=== PATIENT | male | born 1960 | race Caucasian/White ===

== ENCOUNTER 2019-02-16 08:54 | Inpatient (IN) | payer OTHER, BC ==
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
[2019-02-16 09:46] LABS: BASO % 1.2 % (0-2.0); HEMATOCRIT 43.5 % (35.4-49); HEMOGLOBIN 14.6 GM/dl (11.7-16.9); LYMPH % 26.7 % (8-40); MCH 33.2 pg (25.7-33.7); MCHC 33.7 g/dl (32.0-35.9); MEAN CELL VOLUME 98.4 fl (80-96); MEAN PLT VOLUME 9.6 fl (7.5-11.1); MONO % 7.1 % (3.8-10.2); PLATELET COUNT 180 K/MM3 (134-434); RBC 4.41 M/mm3 (4.00-5.60); RDW 13.1 % (11.9-15.9); WHITE BLOOD COUNT 8.3 K/mm3 (4.0-10.8)
[2019-02-16 09:48] LABS: INR 1.1 (0.82-1.09); PROTHROMBIN TIME (PATIENT) 12.3 SEC (10.2-13.0)
[2019-02-16 10:57] LABS: ALBUMIN 3.5 g/dl (3.4-5.0); BILIRUBIN,TOTAL 0.4 mg/dL (0.2-1); BLOOD UREA NITROGEN 13.3 mg/dL (7-18); CALCIUM 9.3 mg/dL (8.5-10.1); CREATININE 0.8 mg/dL (0.55-1.3); POTASSIUM 4.2 mmol/L (3.5-5.1); TOT PROT 6.9 g/dl (6.4-8.2)
[2019-02-16 11:47] VITALS: BMI 27.6
[2019-02-16] MEDS ORDERED: IBUPROFEN 600 MG TABLET (FP) PO PRN (13:02)
[2019-02-16] MEDS ORDERED: MIDAZOLAM HCL 2 MG/2 ML SINGLE DOSE VIAL ONE (14:13)
[2019-02-16] MEDS ORDERED: PROPOFOL 20 ML ONE ×2 (14:13→14:44)
[2019-02-16] MEDS ORDERED: SUCCINYLCHOLINE CHLORIDE 200 MG/10 ML SYRINGE ONE (14:13)
[2019-02-16] MEDS ORDERED: BUPIVACAINE HCL/PF 2.5 MG/ML - 30 ML VIAL IJ ONE (14:14)
[2019-02-16] MEDS ORDERED: DEXAMETHASONE SOD PHOSPHATE 4 MG/1 ML VIAL ONE (14:15)
[2019-02-16] MEDS ORDERED: LIDOCAINE HCL/PF 2% SDV 5ML VIAL ONE (14:15)
[2019-02-16] MEDS ORDERED: KETOROLAC TROMETHAMINE 30 MG/1 ML VIAL ONE (14:15)
[2019-02-16] MEDS ORDERED: ceFAZolin SODIUM 1 GM VIAL ONE (14:15)
[2019-02-16] MEDS ORDERED: ONDANSETRON 4 MG/2 ML VIAL ONE (14:15)
[2019-02-16] MEDS ORDERED: SODIUM CHLORIDE 0.9% P/F 10 ML VIAL IJ ONE (14:15)
--- NOTE | 2019-02-16 15:16 | PN ---
Progress Note (short form) - Note Progress Note: Ortho FULL CONSULT DICTATED BY DR STARKEY. A/P OR FOR RIGHT SHOULDER I&D
--- NOTE | 2019-02-16 15:20 | OP ---
Operative Note - Note: Operative Date: 02/16/19 (suhail) Pre-Operative Diagnosis: right shoulder infection Operation: right shoulder I&D, removal of hardware, arthrotomy, bursectomy Post-Operative Diagnosis: Same as Pre-op Surgeon: Aníbal Liu Anesthesiologist/DOOR LINER HELPER: Rosales Bhatti Anesthesia: General Specimens Removed: RC anchors, sutures, bursa Estimated Blood Loss (mls): 50
[2019-02-16] MEDS ORDERED: oxyCODONE HCL 5 MG TABLET PO PRN (15:50)
[2019-02-16] MEDS ORDERED: ONDANSETRON 4 MG/2 ML VIAL IVPUSH PRN (15:50)
[2019-02-16] MEDS ORDERED: PROMETHAZINE HCL 25 MG/1 ML VIAL IVPUSH PRN (15:50)
[2019-02-16] MEDS ORDERED: HYDROmorphone HCl 2 MG/ML VIAL IVPUSH PRN (15:50)
--- NOTE | 2019-02-16 17:24 | HP ---
Admitting History and Physical - Admission Chief Complaint: R shoulder pain History of Present Illness: Patient is a 58y/o male with past medical history of HTN, HLD, multiple orthopedic surgeries. Patient complain of R shoulder pain after injection to R shoulder by orthopedist 2 weeks ago. He says 2 days after receiving joint injection he noticed swelling to his R shoulder and pain. Yesterday he had swelling drained by orthopedist which showed possible infection. History Source: Patient Limitations to Obtaining History: No Limitations - Past Medical History Cardiovascular: Yes: HTN, Hyperlipdemia - Past Surgical History Additional Past Surgical History: cervical spinal fusion, cardiac catherterization - Smoking History Smoking history: Current every day smoker Have you smoked in the past 12 months: Yes Aproximately how many cigarettes per day: 40 - Alcohol/Substance Use Hx Alcohol Use: No - Social History Usual Living Arrangement: Yes: Alone ADL: Independent History of Recent Travel: No Home Medications - Allergies Allergies/Adverse Reactions: Allergies Allergy/AdvReac Type Severity Reaction Status Date / Time No Known Drug Allergies Allergy Unknown Verified 02/16/19 08:55 - Home Medications Home Medications: Ambulatory Orders Aspirin [ASA -] 81 mg PO DAILY 02/16/19 Diazepam 10 - 20 mg PO HS 02/16/19 Famotidine [Acid Controller] 20 mg PO BID 02/16/19 Metoprolol Succinate [Toprol Xl] 50 mg PO BID 02/16/19 Review of Systems - Review of Systems Constitutional: reports: No Symptoms Eyes: reports: No Symptoms HENT: reports: No Symptoms Neck: reports: No Symptoms Cardiovascular: reports: No Symptoms Respiratory: reports: No Symptoms Gastrointestinal: reports: No Symptoms Genitourinary: reports: No Symptoms Breasts: reports: No Symptoms Reported Musculoskeletal: reports: Joint Pain (R shoulder), Joint Swelling (R shoulder) Integumentary: reports: No Symptoms Neurological: reports: No Symptoms Endocrine: reports: No Symptoms Hematology/Lymphatic: reports: No Symptoms Psychiatric: reports: No Symptoms Physical Examination Vital Signs: Vital Signs Temperature 97.6 F 02/16/19 15:45 Pulse Rate 73 02/16/19 15:45 Respiratory Rate 16 02/16/19 15:45 Blood Pressure 154/87 02/16/19 15:45 O2 Sat by Pulse Oximetry (%) 97 02/16/19 15:45 Constitutional: Yes: No Distress, Calm Eyes: Yes: Conjunctiva Clear HENT: Yes: Atraumatic Neck: Yes: Supple Cardiovascular: Yes: Regular Rate and Rhythm Respiratory: Yes: Regular, CTA Bilaterally Gastrointestinal: Yes: Normal Bowel Sounds, Soft Musculoskeletal: Yes: WNL Extremities: Yes: WNL Edema: No Wound/Incision: Yes: Dressing Dry and Intact Neurological: Yes: Alert, Oriented Psychiatric: Yes: Alert, Oriented Labs: CBC, BMP 02/16/19 09:10 02/16/19 09:10 Imaging - Results Cat Scan: Report Reviewed Problem List - Problems (1) HTN (hypertension) Assessment/Plan: -Metoprolol -low Na diet Code(s): I10 - ESSENTIAL (PRIMARY) HYPERTENSION (2) Infective arthritis of right shoulder Assessment/Plan: -Orthopedics on board -POD #0 R SHoulder I&D, removal of hardware, bursectomy -pain control -incentive spirometer -PT -dvt ppx Code(s): M00.9 - PYOGENIC ARTHRITIS, UNSPECIFIED Assessment/Plan see problem list dvt ppx
[2019-02-16] MEDS: NICOTINE 7 MG/24 HOURS TOPICAL PATCH TD SCH (18:11)
--- NOTE | 2019-02-16 18:29 | CONS ---
DATE OF CONSULTATION: 02/16/2019 ORTHOPEDIC CONSULTATION Patient is a 58-year-old male well known to me being approximately multiple years since our right rotator cuff repair. Patient was seen in my office approximately 10 days ago complaining of pain in his shoulder. X-rays at that time had shown slightly high riding humeral head and the anchors from his previous surgery. At that time of the initial presumptive diagnosis of bursitis in his shoulder was made. Patient did worse over the ensuring period of time and presented with worsening pain. Patient presented to my office yesterday on February 15 with swelling of the anterior aspect of his shoulder. He did have good range of motion of his glenohumeral joint but had very exquisite tenderness anteriorly over the anterior deltoid with a slight fluctuance in that region. He had nontender clavicle, AC joint, acromion, and again a good range of motion of his shoulder with no erythema. A needle aspiration of the area revealed some cloudy fluid quite possibly purulence. This was sent for culture but with the potential of an infection. The patient was indicated for an emergent open exploration and debridement of his shoulder. He was sent to come to the emergency room the next morning to be admitted at [facility] which was performed today in the emergency room. Lab values, white count was within normal limits, and patient had no fever. CAT scan in the emergency room did show some fluid anterolateral to the shoulder. Patient was therefore indicated for an open exploration of the rotator cuff debridement and irrigation and culture. We will hold off on antibiotic administration until after we open the patient and are able to get good cultures intraoperatively. ADITI STARKEY M.D. [id number]
--- NOTE | 2019-02-16 19:44 | OP ---
DATE OF OPERATION: 02/16/2019 PREOPERATIVE DIAGNOSIS: Internal derangement right shoulder, possible infection. POSTOPERATIVE DIAGNOSIS: Internal derangement right shoulder, possible infection. PROCEDURE: Open exploration of the right shoulder with debridement of rotator cuff, removal of hardware, open bursectomy of the shoulder, and irrigation and debridement. SURGICAL ATTENDING: Aníbal Liu M.D. CAKE MIXER: Pedro Olivares ANESTHESIA: General with LMA. CLOSURE: 0 Vicryl , 2-0 nylon for skin. ESTIMATED BLOOD LOSS: Negligible. COMPLICATIONS: None. CONDITION: To recovery in stable condition. DESCRIPTION OF OPERATIVE PROCEDURE: Patient taken to operating room on February 16, 2019. General anesthesia LMA was administered by the anesthesiologist. No IV antibiotics were administered prophylactically prior to the case as we wanted to wait until after cultures were obtained. The right shoulder was prepped and draped in the usual sterile fashion after the patient was placed in the beach chair position. The shoulder was palpated to have some sort of fluctuance over its anterolateral aspect. A longitudinal incision over the anterolateral corner of the acromion in line with the deltoid fibers was incised. Hemostasis achieved with Bovie cautery. Sharp dissection was carried down to the level of the deltoid fascia. This was opened sharply then bluntly dissected through the deltoid and into the subdeltoid region. Some cloudy fluid was encountered from in the soft tissue, and some immediately upon going through the deltoid fascia. This area was cultured and fluid was sent to the lab for analysis. At this time, IV antibiotics, Kefzol was administered by the anesthesiologist. The subdeltoid and subacromial region was entered. There was a great deal of fibrinous material in this region. The fibrinous material that had covered over where the rotator cuff had been repaired, there was some free floating sutures from this speed bridge repair that had been done initially . These features were not attached to the rotator cuff any longer. They were pulled, and the anchors that they were attached were pulled out of the humeral head. Three anchors were easily removed. The fourth anchor was not found and was left in situ. The holes where the anchors came out were curetted. All bursal tissue in the subacromial space was debrided. The rotator cuff was found again to be deficient with a bald humeral head superiorly especially. Areas of the greater tuberosity were rongeured deep down to bleeding healthy bone. All suture material from the repair was debrided. Six liters of pulsed antibiotic irrigation were irrigated in the subacromial space subdeltoid region throughout the shoulder in the subcutaneous tissue. This was all drained, hemostasis was achieved. The deltoid was closed using a 0 Vicryl running suture. The skin was closed using 2-0 nylon horizontal mattress suture. Sterile pressure dressing was applied, and a sling was applied to the right upper extremity. Patient awakened from anesthesia and transferred to recovery room in stable condition. Will keep the patient on prophylactic antibiotics until we obtain the results of the culture and the fluid sent down to the lab, check it for cell count, crystals, culture and sensitivity, and pathology. Infectious disease consultation will be obtained as well to help direct us further in the treatment of this patient. ANÍBAL LIU M.D. ELAINE/[id number]
[2019-02-16] MEDS: oxyCODONE HCL 5 MG TABLET PO PRN (19:47)
[2019-02-16] MEDS ORDERED: HEPARIN NA (PORCINE) 5,000 UNITS/ML 1ML VIAL SQ SCH (22:00)
[2019-02-16] MEDS: diazePAM 5 MG TABLET PO SCH (22:01)
[2019-02-16] MEDS: FAMOTIDINE 20 MG TABLET PO SCH (22:02)
[2019-02-17 08:00] LABS: BASO % 0.3 % (0-2.0); EOS % 0.6 % (0-4.5); HEMATOCRIT 37.4 % (35.4-49); HEMOGLOBIN 12.9 GM/dl (11.7-16.9); MCH 33.9 pg (25.7-33.7); MCHC 34.6 g/dl (32.0-35.9); MEAN PLT VOLUME 10.1 fl (7.5-11.1); MONO % 4.6 % (3.8-10.2); NEUT % 80.5 % (42.8-82.8); PLATELET COUNT 147 K/MM3 (134-434); RBC 3.82 M/mm3 (4.00-5.60); RDW 13.2 % (11.9-15.9); WHITE BLOOD COUNT 12.4 K/mm3 (4.0-10.8)
[2019-02-17 08:05] LABS: ALBUMIN 3.1 g/dl (3.4-5.0); BILIRUBIN,TOTAL 0.2 mg/dl (0.2-1); CALCIUM 8.5 mg/dl (8.5-10); CREATININE 0.7 mg/dl (0.55-1.3); MAGNESIUM 1.9 mg/dL (1.8-2.4); PHOSPHOROUS 3.9 mg/dl (2.5-4.9); POTASSIUM 4.2 mmol/L (3.5-5.1)
--- NOTE | 2019-02-17 09:11 | PN ---
Progress Note (short form) - Note Progress Note: ANESTHESIA POSTOP 58 YO MALE POD#1 S/P RIGHT SHOULDER I&D, GA Patient resting in bed. No n/v VSS, Afebrile Continue current care. Encouraged IS and ambulation. No anesthetic complications.
--- NOTE | 2019-02-17 09:22 | EKG ---
Test Reason : Blood Pressure : / mmHG Vent. Rate : 073 BPM Atrial Rate : 073 BPM P-R Int : 122 ms QRS Dur : 138 ms QT Int : 420 ms P-R-T Axes : 069 081 010 degrees QTc Int : 462 ms NORMAL SINUS RHYTHM RIGHT BUNDLE BRANCH BLOCK ABNORMAL ECG WHEN COMPARED WITH ECG OF 10-AUG-2010 10:08, RIGHT BUNDLE BRANCH BLOCK IS NOW PRESENT Confirmed by ZULEYMA MEIER, FANNY ([id number]) on 02/17/2019 9:22:28 AM Referred By: MEAGAN VU Confirmed By:FANNY AMOR MD
--- NOTE | 2019-02-17 09:49 | PN ---
Progress Note (short form) - Note Progress Note: Ortho Pt seen and examined s/p right shoulder I&D pod #1 Laboratory Tests 02/16/19 02/16/19 02/17/19 15:14 15:14 07:06 WBC 12.4 H Hgb 12.9 Hct 37.4 Plt Count 147 Fluid Source Pending Fluid RBC Pending Fluid Neutrophils Pending Synovial Crystals Pending dressing c/d/i, good rom of elbow, wrist and hand nvi a/p ID consult f/u cultures and micro sling for comfort ok for shoulder ROM exercises pain control will follow
[2019-02-17] MEDS ORDERED: ceFAZolin 2 GRAM PREMIX BAG IVPB SCH (10:00)
[2019-02-17] MEDS: ASPIRIN 81 MG CHEWABLE TABLETS PO SCH (10:10)
[2019-02-17] MEDS: FAMOTIDINE 20 MG TABLET PO SCH ×2 (10:10→22:02)
[2019-02-17] MEDS: NICOTINE 7 MG/24 HOURS TOPICAL PATCH TD SCH (10:11)
--- NOTE | 2019-02-17 10:38 | PN ---
Progress Note (short form) - Note Progress Note: ID CONSULT DICTATED POD#1 I&D R SHOULDER AWAIT C/S EMPIRIC VANCOMYCIN/CEFEFIME HOLD OR CULTURES FOR P. ACNES
[2019-02-17] MEDS ORDERED: CEFEPIME HCL/D5W 2 GM/50 ML BAG IVPB SCH (10:45)
[2019-02-17] MEDS ORDERED: CEFEPIME HCL 2 GM VIAL (RESTRICTED TO ID) ONE ×2 (10:59→17:28)
[2019-02-17] MEDS ORDERED: DEXTROSE 5%-WATER 100 ML IVPB ONE ×2 (10:59→17:28)
[2019-02-17] MEDS ORDERED: FLU VACCINE QUAD 60 MCG/0.5 ML (MDV 19-20) IM ONE (11:00)
[2019-02-17] MEDS: VANCOMYCIN 1 GRAM (PRE-DOCKED) 1,000 MG/250 ML BAG IVPB SCH ×2 (11:03→22:13)
[2019-02-17] MEDS: CEFEPIME 2 GM in DEXTROSE 5%-WATER 100 ML IVPB SCH ×2 (11:03→17:30)
[2019-02-17] MEDS: oxyCODONE HCL 5 MG TABLET PO PRN ×2 (12:53→20:04)
--- NOTE | 2019-02-17 16:44 | PN ---
Progress Note, Physician Chief Complaint: R Shoulder pain History of Present Illness: Previous notes and events reviewed awake and alert NAD leukocytosis afebrile POD #1 R SHoulder I&D, removal of hardware, bursectomy - Current Medication List Current Medications: Active Medications Aspirin (Asa -) 81 mg PO DAILY [facility] Last Admin: 02/17/19 10:10 Dose: 81 mg Diazepam (Valium -) 5 mg PO HS [facility] Last Admin: 02/16/19 22:01 Dose: 5 mg Famotidine (Pepcid -) 20 mg PO BID [facility] Last Admin: 02/17/19 10:10 Dose: 20 mg Vancomycin HCl (Vancomycin (Pre-Docked)) 1,000 mg in 250 mls @ 166.667 mls/hr IVPB Q12H [facility]; Protocol Last Admin: 02/17/19 11:03 Dose: 166.667 mls/hr Cefepime HCl 2 gm/ Dextrose 100 mls @ 200 mls/hr IVPB Q8H-IV [facility] Last Admin: 02/17/19 11:03 Dose: 200 mls/hr Ibuprofen (Motrin -) 600 mg PO Q6H PRN PRN Reason: PAIN LEVEL 4 - 6 Metoprolol Succinate (Toprol Xl -) 50 mg PO BID [facility] Last Admin: 02/17/19 10:10 Dose: 50 mg Nicotine (Nicoderm Patch -) 7 mg TD DAILY [facility] Last Admin: 02/17/19 10:11 Dose: 7 mg Ondansetron HCl (Zofran Injection) 4 mg IVPUSH Q6H PRN PRN Reason: NAUSEA AND/OR VOMITING Last Admin: 02/16/19 16:15 Dose: 4 mg Oxycodone HCl (Roxicodone -) 5 mg PO Q4H PRN PRN Reason: PAIN LEVEL 1-5 Oxycodone HCl (Roxicodone -) 10 mg PO Q4H PRN PRN Reason: PAIN LEVEL 6-10 Last Admin: 02/17/19 12:53 Dose: 10 mg Oxycodone/Acetaminophen (Percocet 5/325 -) 1 combo PO Q6H [facility] Last Admin: 02/17/19 15:32 Dose: 1 combo - Objective Vital Signs: Vital Signs Temperature 97.8 F 02/17/19 14:21 Pulse Rate 75 02/17/19 14:21 Respiratory Rate 18 02/17/19 14:21 Blood Pressure 125/70 02/17/19 14:21 O2 Sat by Pulse Oximetry (%) 97 02/17/19 14:21 Constitutional: Yes: No Distress, Calm Eyes: Yes: Conjunctiva Clear HENT: Yes: Atraumatic Cardiovascular: Yes: Regular Rate and Rhythm Respiratory: Yes: Regular, CTA Bilaterally Gastrointestinal: Yes: Normal Bowel Sounds, Soft Musculoskeletal: Yes: WNL Extremities: Yes: WNL Edema: No Wound/Incision: Yes: Dressing Dry and Intact Neurological: Yes: Alert, Oriented Psychiatric: Yes: Alert, Oriented Labs: CBC, BMP 02/17/19 07:06 02/17/19 07:06 INR, PTT INR 1.10 (0.82-1.09) 02/16/19 09:10 Problem List - Problems (1) HTN (hypertension) Assessment/Plan: -Metoprolol -low Na diet Code(s): I10 - ESSENTIAL (PRIMARY) HYPERTENSION (2) Infective arthritis of right shoulder Assessment/Plan: -Orthopedics on board -POD #1 R SHoulder I&D, removal of hardware, bursectomy -pain control -incentive spirometer -PT -dvt ppx -Vancomycin, Cefepime -leukocytosis -afebrile Code(s): M00.9 - PYOGENIC ARTHRITIS, UNSPECIFIED
[2019-02-17] MEDS: diazePAM 5 MG TABLET PO SCH (22:03)
[2019-02-18] MEDS ORDERED: CEFEPIME HCL 2 GM VIAL (RESTRICTED TO ID) ONE ×3 (00:46→16:54)
[2019-02-18] MEDS ORDERED: DEXTROSE 5%-WATER 100 ML IVPB ONE ×3 (00:47→16:54)
[2019-02-18] MEDS: oxyCODONE HCL 5 MG TABLET PO PRN ×3 (00:51→11:30)
[2019-02-18] MEDS: CEFEPIME 2 GM in DEXTROSE 5%-WATER 100 ML IVPB SCH ×3 (01:05→17:38)
[2019-02-18 07:53] LABS: HEMATOCRIT 36.5 % (35.4-49); HEMOGLOBIN 12.3 GM/dl (11.7-16.9); MCH 33.1 pg (25.7-33.7); MCHC 33.8 g/dl (32.0-35.9); MEAN CELL VOLUME 97.9 fl (80-96); MEAN PLT VOLUME 9.4 fl (7.5-11.1); PLATELET COUNT 134 K/MM3 (134-434); RBC 3.73 M/mm3 (4.00-5.60); WHITE BLOOD COUNT 10.2 K/mm3 (4.0-10.8)
[2019-02-18 08:04] LABS: ALBUMIN 3.1 g/dl (3.4-5.0); BILIRUBIN,TOTAL 0.2 mg/dl (0.2-1); CALCIUM 8.4 mg/dl (8.5-10); CREATININE 0.8 mg/dl (0.55-1.3); POTASSIUM 4.2 mmol/L (3.5-5.1); TOT PROT 5.8 g/dl (6.4-8.2)
--- NOTE | 2019-02-18 08:46 | PN ---
Progress Note (short form) - Note Progress Note: Ortho Pt seen and examined s/p right shoulder I&D pod #2 Selected Entries 02/18/19 06:00 Temperature 97.6 F Pulse Rate 71 Respiratory 18 Rate Blood Pressure 129/76 Laboratory Tests 02/18/19 07:17 WBC 10.2 Hgb 12.3 Hct 36.5 Plt Count 134 dressing c/d/i, good rom of elbow, wrist and hand nvi culture neg to date a/p Abx as per ID f/u cultures and micro sling for comfort ok for shoulder ROM exercises pain control d/c as per ID recs
[2019-02-18] MEDS: POLYETHYLENE GLYCOL 3350 119 GM BTL PO SCH (09:18)
[2019-02-18] MEDS: ASPIRIN 81 MG CHEWABLE TABLETS PO SCH (09:20)
[2019-02-18] MEDS: NICOTINE 7 MG/24 HOURS TOPICAL PATCH TD SCH (09:20)
[2019-02-18] MEDS: FAMOTIDINE 20 MG TABLET PO SCH ×2 (09:20→21:24)
[2019-02-18] MEDS: VANCOMYCIN 1 GRAM (PRE-DOCKED) 1,000 MG/250 ML BAG IVPB SCH ×2 (11:14→22:50)
--- NOTE | 2019-02-18 12:30 | PN ---
Progress Note, Physician Chief Complaint: patient seen and examined - Current Medication List Current Medications: Active Medications Aspirin (Asa -) 81 mg PO DAILY [facility] Last Admin: 02/18/19 09:20 Dose: 81 mg Diazepam (Valium -) 5 mg PO HS [facility] Last Admin: 02/17/19 22:03 Dose: 5 mg Famotidine (Pepcid -) 20 mg PO BID [facility] Last Admin: 02/18/19 09:20 Dose: 20 mg Vancomycin HCl (Vancomycin (Pre-Docked)) 1,000 mg in 250 mls @ 166.667 mls/hr IVPB Q12H [facility]; Protocol Last Admin: 02/18/19 11:14 Dose: 166.667 mls/hr Cefepime HCl 2 gm/ Dextrose 100 mls @ 200 mls/hr IVPB Q8H-IV [facility] Last Admin: 02/18/19 09:20 Dose: 200 mls/hr Ibuprofen (Motrin -) 600 mg PO Q6H PRN PRN Reason: PAIN LEVEL 4 - 6 Metoprolol Succinate (Toprol Xl -) 50 mg PO BID [facility] Last Admin: 02/18/19 09:20 Dose: 50 mg Nicotine (Nicoderm Patch -) 7 mg TD DAILY [facility] Last Admin: 02/18/19 09:20 Dose: 7 mg Ondansetron HCl (Zofran Injection) 4 mg IVPUSH Q6H PRN PRN Reason: NAUSEA AND/OR VOMITING Last Admin: 02/16/19 16:15 Dose: 4 mg Oxycodone HCl (Roxicodone -) 5 mg PO Q4H PRN PRN Reason: PAIN LEVEL 1-5 Oxycodone HCl (Roxicodone -) 10 mg PO Q4H PRN PRN Reason: PAIN LEVEL 6-10 Last Admin: 02/18/19 07:51 Dose: 10 mg Oxycodone/Acetaminophen (Percocet 5/325 -) 1 combo PO Q6H [facility] Last Admin: 02/18/19 11:10 Dose: 1 combo Polyethylene Glycol (Miralax (For Daily Use) -) 17 gm PO DAILY [facility] Last Admin: 02/18/19 09:18 Dose: 17 gm - Objective Vital Signs: Vital Signs Temperature 97.6 F 02/18/19 06:00 Pulse Rate 71 02/18/19 06:00 Respiratory Rate 18 02/18/19 06:00 Blood Pressure 129/76 02/18/19 06:00 O2 Sat by Pulse Oximetry (%) 97 02/18/19 06:00 Constitutional: Yes: Calm Cardiovascular: Yes: Regular Rate and Rhythm, S1, S2 Respiratory: Yes: CTA Bilaterally Gastrointestinal: Yes: Normal Bowel Sounds, Soft Extremities: Yes: Other (shoulder dressing noted) Edema: No Neurological: Yes: Alert, Oriented Labs: CBC, BMP 02/18/19 07:17 02/18/19 07:17 INR, PTT INR 1.10 (0.82-1.09) 02/16/19 09:10 Problem List - Problems (1) HTN (hypertension) Assessment/Plan: metorpolol Code(s): I10 - ESSENTIAL (PRIMARY) HYPERTENSION (2) Infective arthritis of right shoulder Assessment/Plan: iv vancomycin Microbiology 02/16/19 15:14 Tissue-Other Gram Stain - Final 02/16/19 15:14 Shoulder - Right Gram Stain - Final 02/16/19 15:14 Tissue-Other Tissue Culture - Preliminary NO AEROBIC GROWTH, 24 HRS 02/16/19 15:14 Shoulder - Right Wound Culture - Preliminary NO GROWTH OBTAINED AFTER 24 HOURS INCUBATION, REINCUBATED. 02/16/19 09:20 Blood - Peripheral Venous Blood Culture - Preliminary NO GROWTH OBTAINED AFTER 48 HOURS, INCUBATION TO CONTINUE FOR 3 DAYS. 02/16/19 09:10 Blood - Peripheral Venous Blood Culture - Preliminary NO GROWTH OBTAINED AFTER 48 HOURS, INCUBATION TO CONTINUE FOR 3 DAYS. awaiting ID recommendation for po abx leukocytosis resolved Code(s): M00.9 - PYOGENIC ARTHRITIS, UNSPECIFIED (3) Constipation Assessment/Plan: tired taking prune juice and miralax no response will give suppository Code(s): K59.00 - CONSTIPATION, UNSPECIFIED
[2019-02-18] MEDS: BISACODYL 10 MG SUPP.RECT RC ONE (13:32)
[2019-02-18] MEDS: diazePAM 5 MG TABLET PO SCH (21:24)
[2019-02-19] MEDS ORDERED: DEXTROSE 5%-WATER 100 ML IVPB ONE ×2 (01:30→08:47)
[2019-02-19] MEDS ORDERED: CEFEPIME HCL 2 GM VIAL (RESTRICTED TO ID) ONE ×2 (01:30→08:46)
[2019-02-19] MEDS: CEFEPIME 2 GM in DEXTROSE 5%-WATER 100 ML IVPB SCH ×2 (01:38→09:19)
[2019-02-19] MEDS: BISACODYL 10 MG SUPP.RECT RC ONE (07:27)
--- NOTE | 2019-02-19 09:50 | PN ---
Progress Note (short form) - Note Progress Note: Ortho Pt seen and examined s/p right shoulder I&D pod #3 Selected Entries 02/19/19 04:00 Temperature 97.6 F Pulse Rate 66 Respiratory 19 Rate Blood Pressure 127/72 Laboratory Tests 02/18/19 07:17 WBC 10.2 Hgb 12.3 Hct 36.5 Plt Count 134 dressing c/d/i, good rom of elbow, wrist and hand nvi culture neg to date a/p Abx as per ID f/u cultures and micro sling for comfort ok for shoulder ROM exercises pain control d/c home today if cleared by ID
[2019-02-19] MEDS: VANCOMYCIN 1 GRAM (PRE-DOCKED) 1,000 MG/250 ML BAG IVPB SCH (10:56)
[2019-02-19] MEDS: POLYETHYLENE GLYCOL 3350 119 GM BTL PO SCH (10:56)
[2019-02-19] MEDS: FAMOTIDINE 20 MG TABLET PO SCH (10:56)
[2019-02-19] MEDS: ASPIRIN 81 MG CHEWABLE TABLETS PO SCH (10:56)
[2019-02-19] MEDS: NICOTINE 7 MG/24 HOURS TOPICAL PATCH TD SCH (10:56)
--- NOTE | 2019-02-19 11:34 | CONS ---
DATE OF CONSULTATION: DATE OF DICTATION: 02/19/2019 HISTORY: The patient is a 58-year-old male who is evaluated for possible right shoulder infection. He reports having chronic rotator cuff tendonitis. He had undergone surgery in 2011. He reports since that time he has been doing well. Most recently, he has been experiencing pain in his right shoulder. He was seen by his orthopedist 2 weeks ago with complaints of pain and swelling. An injection was performed at that time. Since then, he has developed worsening pain and swelling of the right shoulder associated with some wound drainage for the past 2 days. He was admitted to the hospital where a CAT scan was performed and showed a fluid collection of the left femoral head. On February 16, 2019, he underwent an incision and drainage with removal of the hardware and washout. Operative findings were discussed with the orthopaedic surgeon. He reports he removed all of the orthopaedic surgery including screws and anchors. Fluid was obtained and sent for culture. The fluid Gram stain was negative for organisms or bacteria. Cultures negative. He has been afebrile with a normal white blood cell count. PAST MEDICAL HISTORY: Positive for thoracic and lumbar laminectomy with fusion, hypertension, hyperlipidemia. ALLERGIES: No known allergies. MEDICATIONS: Aspirin, Pepcid, Toprol, Valium. SOCIAL HISTORY: Positive for tobacco use. SYSTEMS REVIEW: Neurologic: No loss of consciousness, seizure activity, focal weakness. Cardiac: Negative chest pain or palpitations. Respiratory: Negative cough or sputum production. Gastrointestinal: Negative vomiting or diarrhea. Genitourinary: Negative for urinary tract infection. LABORATORY DATA: White count 12.4, hematocrit 37.4, platelets 142, creatinine 0.7. Urinalysis negative. Cultures preliminarily negative. PHYSICAL EXAMINATION: General: He is awake and alert. Not acutely toxic appearing. Vital Signs: Temperature 97.6, blood pressure 128/77, pulse 73 regular, respirations 18 per minute. HEENT: Sclerae anicteric. Heart: Sounds S1, S2. Skin: Surgical wound, no erythema or drainage. Lungs: Clear. Abdomen: Soft and nontender. Extremities: Negative for edema. IMPRESSION: Status post open exploration of the right shoulder with removal of hardware and washout. PLAN: Pending cultures, empiric antibiotic coverage with vancomycin and cefepime. Further recommendations pending clinical course. We will follow. Thank you for the kind referral. JAMILAH GIRALDO M.D. MICHAEL/[id number]
--- NOTE | 2019-02-19 11:59 | DS ---
Physical Examination Vital Signs: Vital Signs Temperature 97.5 F L 02/19/19 10:32 Pulse Rate 66 02/19/19 04:00 Respiratory Rate 19 02/19/19 09:00 Blood Pressure 127/72 02/19/19 04:00 O2 Sat by Pulse Oximetry (%) 96 02/19/19 09:00 Labs: CBC, BMP 02/18/19 07:17 02/18/19 07:17 Discharge Summary Problems reviewed: Yes Reason For Visit: INFECTIOUS ARTHRITIS OF RIGHT SHOULDER Current Active Problems Constipation (Acute) HLD (hyperlipidemia) (Acute) HTN (hypertension) (Acute) Infective arthritis of right shoulder (Acute) Procedures: Principal: right shoulder I&D Hospital Course: admitted for right shoulder infection, OR for right shoulder I&D, tolerated procedure well, pt on post-op abx as per ID, cultures are all neg to date, pt stable and cleared by ID for d/c with PO abx. Condition: Good - Instructions Diet, Activity, Other Instructions: Post -op Instruction Sheet - Shoulder Surgery - Sling/Immobilizer : You have been placed in a sling or shoulder immobilizer. As long as you are wearing this, your shoulder is well protected. You may come out of the sling to dress , or do exercises as directed. You may bend and straighten the elbow, and move your wrist and fingers, but DO NOT use your own muscles to move your elbow away from your side until directed to do so. Please sleep with the sling on. You may find it more comfortable to sleep with a small pillow behind your elbow, or in a recliner. To wash your armpit, you may lean slightly forward and let your arm dangle slightly away from your side and wash with a washcloth. - Use an ice bag/pack on the shoulder for 15 minutes every 2 hours. - Pain medication was sent to your Pharmacy. - Keep your dressing clean and dry. Please call the office to make an appointment for 1 week after surgery. Your dressing will be removed at that time. - No Lifting. - Starting 1-2 days after surgery, you may take your arm out of the sling 3 times a day to bend and straighten your shoulder, elbow and wrist to prevent stiffness. - Please call the office at [phone] if there are any questions or concerns. Referrals: Aníbal Liu MD [Staff Physician] - - Home Medications Comprehensive Discharge Medication List: Ambulatory Orders Aspirin [ASA -] 81 mg PO DAILY 02/16/19 Diazepam 10 - 20 mg PO HS 02/16/19 Famotidine [Acid Controller] 20 mg PO BID 02/16/19 Metoprolol Succinate [Toprol Xl] 50 mg PO BID 02/16/19 Oxycodone HCl/Acetaminophen [Percocet 5-325 mg Tablet] 1 - 2 tab PO Q6H #40 tab MDD 6 02/18/19 Amox-Tr/K Cl [Augmentin - 500Mg Tablet] 1 tab PO TID #30 tablet 02/19/19
--- NOTE | 2019-02-19 12:22 | PN ---
Progress Note, Physician History of Present Illness: NO C/O SHOULDER PAIN NO F/C OPERATIVE C/S NO GROWTH - Current Medication List Current Medications: Active Medications Aspirin (Asa -) 81 mg PO DAILY [facility] Last Admin: 02/19/19 10:56 Dose: Not Given Diazepam (Valium -) 5 mg PO HS [facility] Last Admin: 02/18/19 21:24 Dose: 5 mg Famotidine (Pepcid -) 20 mg PO BID [facility] Last Admin: 02/19/19 10:56 Dose: Not Given Ibuprofen (Motrin -) 600 mg PO Q6H PRN PRN Reason: PAIN LEVEL 4 - 6 Metoprolol Succinate (Toprol Xl -) 50 mg PO BID [facility] Last Admin: 02/19/19 10:56 Dose: Not Given Nicotine (Nicoderm Patch -) 7 mg TD DAILY [facility] Last Admin: 02/19/19 10:56 Dose: Not Given Ondansetron HCl (Zofran Injection) 4 mg IVPUSH Q6H PRN PRN Reason: NAUSEA AND/OR VOMITING Last Admin: 02/16/19 16:15 Dose: 4 mg Oxycodone HCl (Roxicodone -) 5 mg PO Q4H PRN PRN Reason: PAIN LEVEL 1-5 Oxycodone HCl (Roxicodone -) 10 mg PO Q4H PRN PRN Reason: PAIN LEVEL 6-10 Last Admin: 02/18/19 11:30 Dose: 10 mg Oxycodone/Acetaminophen (Percocet 5/325 -) 1 combo PO Q6H [facility] Last Admin: 02/19/19 10:33 Dose: Not Given Polyethylene Glycol (Miralax (For Daily Use) -) 17 gm PO DAILY [facility] Last Admin: 02/19/19 10:56 Dose: Not Given - Objective Vital Signs: Vital Signs Temperature 97.5 F L 02/19/19 10:32 Pulse Rate 66 02/19/19 04:00 Respiratory Rate 19 02/19/19 09:00 Blood Pressure 127/72 02/19/19 04:00 O2 Sat by Pulse Oximetry (%) 96 02/19/19 09:00 Constitutional: Yes: No Distress Eyes: Yes: Conjunctiva Clear Cardiovascular: Yes: Regular Rate and Rhythm Respiratory: Yes: CTA Bilaterally Gastrointestinal: Yes: Normal Bowel Sounds, Soft. No: Tenderness Musculoskeletal: Yes: Other (R SHOULDER WOUND NO ERYTHEMA/DRAINAGE) Labs: CBC, BMP 02/18/19 07:17 02/18/19 07:17 INR, PTT INR 1.10 (0.82-1.09) 02/16/19 09:10 Assessment/Plan S/P I&D R SHOULDER/ REMOVAL OF HARDWARE CULTURES NEGATIVE SUBSTITUTE AUGMENTIN 875MG PO BID X 7D MICRO LAB ASKED TO HOLD C/S FOR P ACNES
[2019-02-19 13:57] VITALS: BP 126/64; PULSE 82; TEMP 97.4
[2019-02-19] MEDS ORDERED: AMOX TR/POT CLAV 875MG/125MG TABLETS (FP) PO SCH (17:30)
== END 2019-02-19 14:49 | disposition home or self-care (01) | DRG 315 ==
LOC: FER 08:54 → FM/S 09:53
PROVIDERS: ADMIT Family Medicine; ATTEND Family Medicine
PROC: 0MB10ZZ Excision of Right Shoulder Bursa and Ligament, Open Approach (ICD-10-PCS; 2019-02-16)
PROC: 0KD50ZZ Extraction of Right Shoulder Muscle, Open Approach (ICD-10-PCS; 2019-02-16)
PROC: 0XP60JZ Removal of Synthetic Substitute from Right Upper Extremity, Open Approach (ICD-10-PCS; 2019-02-16)
PROC: 0JDD0ZZ Extraction of Right Upper Arm Subcutaneous Tissue and Fascia, Open Approach (ICD-10-PCS; principal; 2019-02-16 15:02)
DX: M24.811 Other specific joint derangements of right shoulder, not elsewhere classified (principal); I10 Essential (primary) hypertension; K59.00 Constipation, unspecified; E78.5 Hyperlipidemia, unspecified; F17.210 Nicotine dependence, cigarettes, uncomplicated; M75.101 Unspecified rotator cuff tear or rupture of right shoulder, not specified as traumatic; I25.10 Atherosclerotic heart disease of native coronary artery without angina pectoris; D72.829 Elevated white blood cell count, unspecified
CPT/HCPCS: 36415; 71045-TC-FY; 73200-TC-RT; 80053; 81003; 82550; 83735; 84100; 84436; 84443; 84484; 85025; 85027; 85610; 86850; 86900; 86901; 87040; 87070; 87075; 87205; 93005; 94760; 99283-25

== ENCOUNTER 2020-04-11 04:38 | Day surgery (SDC) | payer OTHER, BC ==
[2020-04-05 13:08] VITALS: BMI 31.3
[2020-04-11 09:46] VITALS: TEMP 99
[2020-04-11 09:48] VITALS: BP 119/79; PULSE 74
== END 2020-04-11 10:01 | disposition home or self-care (01) ==
LOC: JASU-ENDO 04:38
PROVIDERS: ATTEND Internal Medicine Gastroenterology
PROC: 0DBN8ZX Excision of Sigmoid Colon, Via Natural or Artificial Opening Endoscopic, Diagnostic (ICD-10-PCS; 2020-04-11)
PROC: 0DBM8ZX Excision of Descending Colon, Via Natural or Artificial Opening Endoscopic, Diagnostic (ICD-10-PCS; principal; 2020-04-11 09:00)
DX: Z12.11 Encounter for screening for malignant neoplasm of colon (principal); Z86.010 Personal history of colon polyps; D12.4 Benign neoplasm of descending colon; D12.5 Benign neoplasm of sigmoid colon; K64.8 Other hemorrhoids
CPT/HCPCS: 88305-TC